=== PATIENT | male | born 1955 | race American Indian/Alaskan Native ===

== ENCOUNTER 2016-07-20 13:39 | Emergency (ER) | payer MEDICARE, OTHER ==
[2016-07-20 14:31] VITALS: BP 157/84; PULSE 95; RESP 20; TEMP 98; O2SAT 98
--- NOTE | 2016-07-20 15:17 | C.PDOC ---
History Of Present Illness 61 y/o male PMHx cerebral palsy, osteoarthritis, chronic B/L legs pain, psoriasis, presents to ED for evaluation of bilateral knee pain L>R. Pain gradually developed over past 4 days. Pt describes pain as aching, throbbing at time, localized , worse at night time. Pt admits similar symptoms in the past, states "when the weather goes bad I fell my knees and they fell heavy, and I can 't sleep at night due to the pain." Pt reports taking hydrocodone at home for pain " double dose and it helps for pain". Denies fever, chills, known trauma or injury, denies new sensory or vascular deficits to B/L legs, denies B/L calf pain, denies chest pain, SOB. present to ED, appears comfortable, not in any apparent distress. Time Seen by Provider: 07/20/16 14:48 Chief Complaint (Nursing): Lower Extremity Problem/Injury History Per: Patient History/Exam Limitations: no limitations Onset/Duration Of Symptoms: Days, Gradual Current Symptoms Are (Timing): Worse Severity: Moderate Recent travel outside of the [place] States: No Past Medical History Reviewed: Historical Data, Nursing Documentation, Vital Signs Vital Signs: Last Vital Signs Temp 98 F 07/20/16 14:28 Pulse 95 H 07/20/16 14:28 Resp 20 07/20/16 14:28 BP 157/84 H 07/20/16 14:28 Pulse Ox 98 07/20/16 15:23 Family History: States: Unknown Family Hx - Social History Hx Alcohol Use: Yes Hx Substance Use: No - Immunization History Hx Tetanus Toxoid Vaccination: No Hx Influenza Vaccination: No Hx Pneumococcal Vaccination: No Review Of Systems Except As Marked, All Systems Reviewed And Found Negative. Constitutional: Negative for: Fever, Chills Cardiovascular: Negative for: Chest Pain Respiratory: Negative for: Shortness of Breath Musculoskeletal: Positive for: Other (bilateral knee pain) Neurological: Negative for: Weakness, Numbness Physical Exam - Physical Exam Appears: Well, Non-toxic, No Acute Distress Skin: Warm, Dry, Rash (scaly dry rash over anterior aspect right knee extending down right pascual) Extremity: Tenderness (mild tenderness over superior aspect left knee), No Pedal Edema, No Calf Tenderness, Capillary Refill (<2 seconds), No Swelling, Other (Bilateral lower leg muscle wasting. No erythema, no edema, no cellulitis. ) Neurological/Psych: Oriented x3, Normal Speech, Normal Motor, Normal Sensation, Normal Reflexes ED Course And Treatment O2 Sat by Pulse Oximetry: 98 (room air) Pulse Ox Interpretation: Normal Progress Note: Pt refused Prednisone PO saying "I never takes pills in hospital , I get reaction to it". After pt was asked to describe reaction, sts " It gets stuck in my throat". Pt sts, its fine at home and usually gets it out if needed. Pt was offered injection and agrreed. Pt request medication prescription though. Pt was offered imaging of knees-refused. On re-eval, pt is afebrile, hemodynamicaly stable. NOn-toxic. B/L knees: exam c/w arthralgia r/o arthritis. FAROM, no deformity, no neurovascular deficist, no B/L calf tenderness, no cellulitis. Pt advised and ref. to F/u with PMD and Orthoin 2-3 days for re-eavl. return to ED if any worsening or new changes. B/L knees: Disposition Counseled Patient/Family Regarding: Diagnosis, Need For Followup, Rx Given - Disposition Referrals: Meghna Ibarra MD [Staff Provider] - Disposition: HOME/ ROUTINE Disposition Time: 15:20 Condition: STABLE Additional Instructions: Take medication as prescribed Take Hydrocodone pain medication as need for pain Follow up with PMD in 1-2 days for re-evaluation. Return if any worsening or new changes. 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 - Scribe Statement The provider has reviewed the documentation as recorded by the Eli Martinez All medical record entries made by the Eli were at my direction and personally dictated by me. I have reviewed the chart and agree that the record accurately reflects my personal performance of the history, physical exam, medical decision making, and the department course for this patient. I have also personally directed, reviewed, and agree with the discharge instructions and disposition.
[2016-07-20] MEDS ORDERED: MethylPREDNISolone 40 mg Vial IM STA (15:36)
[2016-07-20] MEDS ORDERED: MethylPREDNISolone 40 mg Vial ONE (15:45)
== END 2016-07-20 16:00 | disposition home or self-care (01) ==
LOC: C.ER 13:39
DX: M25.562 Pain in left knee (principal); M25.561 Pain in right knee; G80.9 Cerebral palsy, unspecified
CPT/HCPCS: 96372; 99283; J2920

== ENCOUNTER 2016-11-17 11:29 | Emergency (ER) | payer MEDICARE, OTHER ==
[2016-11-17 11:37] VITALS: RESP 16
--- NOTE | 2016-11-17 13:27 | C.PDOC ---
History Of Present Illness Patient is a 61 year old male, who presents to the emergency department complaining of "fever in his teeth" after having his teeth pulled last month. Patient reports he was given amoxicillin but hasn't taken it because "I drink alcohol every day" and does not take medications when he drinks. He also hasn't taken his blood pressure medicine for the same reason. He denies nausea or vomit. No further medical complaints. PMD: Meghna Ibarra Time Seen by Provider: 11/17/16 12:56 Chief Complaint (Nursing): Fever History Per: Patient History/Exam Limitations: no limitations Onset/Duration Of Symptoms: Days (x1 months ) Current Symptoms Are (Timing): Still Present Past Medical History Reviewed: Historical Data, Nursing Documentation, Vital Signs Vital Signs: Last Vital Signs Temp 98 F 11/17/16 13:29 Pulse 78 11/17/16 13:29 Resp 16 11/17/16 13:29 BP 148/89 11/17/16 13:29 Pulse Ox 99 11/17/16 21:09 - Medical History PMH: HTN Family History: States: Unknown Family Hx - Social History Hx Tobacco Use: Yes (Light smoker <10 cigarettes daily) Hx Alcohol Use: Yes Hx Substance Use: No - Immunization History Hx Tetanus Toxoid Vaccination: No Hx Influenza Vaccination: No Hx Pneumococcal Vaccination: No Review Of Systems Except As Marked, All Systems Reviewed And Found Negative. Constitutional: Positive for: Fever Gastrointestinal: Negative for: Nausea, Vomiting Physical Exam - Physical Exam Appears: Well, No Acute Distress Skin: Normal Color, Warm, Dry Head: Atraumatic, Normacephalic Eye(s): bilateral: Normal Inspection Teeth: Normal Dentition (back molars removed), No Tender To Palpation, No Other (swelling) Throat: Normal Neck: Normal, Normal ROM, Supple Lymphatic: Normal Exam Chest: Symmetrical, No Tenderness Cardiovascular: Rhythm Regular Respiratory: Normal Breath Sounds, No Rales, No Rhonchi, No Wheezing Extremity: Normal ROM, No Tenderness, No Swelling Neurological/Psych: Normal Speech, Normal Motor, Normal Sensation Gait: Steady ED Course And Treatment O2 Sat by Pulse Oximetry: 99 (RA) Pulse Ox Interpretation: Normal Disposition - Disposition Referrals: Meghna Ibarra MD [Staff Provider] - Disposition: HOME/ ROUTINE Disposition Time: 13:25 Condition: GOOD Additional Instructions: Follow up with the medical doctor within 1-2 days. Return if worsened. Prescriptions: Amoxicillin [Amoxil 500 mg Cap] 500 mg PO TID #20 cap Instructions: Gingivitis (ED) Forms: [facility] (Armenian) - Clinical Impression Clinical Impression: Gingivitis - Scribe Statement The provider has reviewed the documentation as recorded by the Juanibestefanía Gregg All medical record entries made by the Juanibestefanía were at my direction and personally dictated by me. I have reviewed the chart and agree that the record accurately reflects my personal performance of the history, physical exam, medical decision making, and the department course for this patient. I have also personally directed, reviewed, and agree with the discharge instructions and disposition.
[2016-11-17 13:30] VITALS: BP 148/89; PULSE 78; TEMP 98
[2016-11-17 21:04] VITALS: O2SAT 99
== END 2016-11-17 13:29 | disposition home or self-care (01) ==
LOC: C.ER 11:29
DX: K05.10 Chronic gingivitis, plaque induced (principal)

== ENCOUNTER 2016-11-22 15:52 | Observation (INO) | payer MEDICARE, OTHER ==
[2016-11-22] MEDS ORDERED: Aspirin 325 mg EC Tablets PO STA (16:35)
[2016-11-22] MEDS ORDERED: Aspirin 325 mg EC Tablets PO ONE (16:42)
[2016-11-22 16:47] LABS: BASO # 0.1 K/uL (0.0-0.2); BASO % 1.2 % (0.0-2.0); EOS # 0.1 K/uL (0.0-0.7); EOS % 1.1 % (0.0-4.0); HEMATOCRIT 48.4 % (35.0-51.0); LYMPH # 1.4 K/uL (1.0-4.3); LYMPH % 22.1 % (20.0-40.0); MEAN CELL VOLUME 81.9 fL (80.0-94.0); MEAN CORPUSCULAR HEMOGLOBIN 26.7 pg (27.0-31.0); MEAN CORPUSCULAR HGB CONC 32.5 g/dL (33.0-37.0); MEAN PLATELET VOLUME 8.4 fL (7.2-11.7); MONO # 0.6 K/uL (0.0-0.8); MONO % 9.5 % (0.0-10.0); RED CELL DISTRIBUTION WIDTH 16.3 % (11.5-14.5); WHITE BLOOD COUNT 6.3 K/uL (4.8-10.8)
--- NOTE | 2016-11-22 16:47 | C.PDOC ---
History Of Present Illness 61 y/o male with PMHx of HTN and Cerebral palsy presents to ED with complaints of mid sternal chest tightness since 2pm today. Patient states he feels chest is heavy and rates pain 8/10. Patient was seen at ED 1 week ago for Hypertensive episode and by his dentist for gingivitis and was given antibiotics he is compliant with. Patient reports he feels lightheaded and denies nausea, fever, sob, cough or any other complaints at this time. He has never had a similar episode and denies any known cardiac history. Time Seen by Provider: 11/22/16 16:13 Chief Complaint (Nursing): Chest Pain History Per: Patient History/Exam Limitations: no limitations Onset/Duration Of Symptoms: Hrs Current Symptoms Are (Timing): Still Present Quality: Tightness Associated Symptoms: denies: Nausea, Diaphoresis Past Medical History Reviewed: Historical Data, Nursing Documentation, Vital Signs Vital Signs: Last Vital Signs Temp 98 F 11/22/16 16:01 Pulse 91 H 11/22/16 16:15 Resp 17 11/22/16 16:15 BP 135/90 11/22/16 16:15 Pulse Ox 98 11/22/16 17:02 - Medical History PMH: HTN Surgical History: No Surg Hx Family History: States: No Known Family Hx - Social History Hx Tobacco Use: Yes (Light smoker <10 cigarettes daily) Hx Alcohol Use: Yes Hx Substance Use: No - Immunization History Hx Tetanus Toxoid Vaccination: No Hx Influenza Vaccination: No Hx Pneumococcal Vaccination: No Review Of Systems Except As Marked, All Systems Reviewed And Found Negative. Constitutional: Negative for: Fever, Chills Cardiovascular: Positive for: Chest Pain Respiratory: Negative for: Shortness of Breath Gastrointestinal: Negative for: Nausea, Vomiting, Diarrhea Skin: Negative for: Rash Neurological: Negative for: Weakness, Numbness Physical Exam - Physical Exam Appears: Non-toxic, No Acute Distress Skin: Warm, Dry, No Diaphoretic, No Rash Head: Atraumatic, Normacephalic Eye(s): bilateral: PERRL, left: Other (Left eye deviated laterally) Oral Mucosa: Moist Gingiva: Normal Appearing, No Erythema Throat: Normal, No Erythema Neck: Normal ROM, Supple Chest: Symmetrical Cardiovascular: Rhythm Regular Respiratory: Normal Breath Sounds, No Rales, No Rhonchi, No Wheezing Gastrointestinal/Abdominal: Soft, No Tenderness, No Guarding, No Rebound Back: No CVA Tenderness Neurological/Psych: Oriented x3, Normal Motor, Normal Sensation ED Course And Treatment - Laboratory Results Result Diagrams: 11/22/16 16:41 11/22/16 16:41 Lab Interpretation: No Acute Changes ECG: Interpreted By Me ECG Rhythm: Sinus Tachycardia (with left axis and anterior infarct ?age) O2 Sat by Pulse Oximetry: 98 (RA) Pulse Ox Interpretation: Normal - Radiology CXR: Interpreted by Me CXR Interpretation: Yes: No Acute Disease Reevaluation Time: 17:38 Reassessment Condition: Improved (Patient is pain free after ASA and NTG sl) - Physician Consult Information Time Consulting Physician Contacted: 17:38 Physician Contacted: Meghna Ibarra Outcome Of Conversation: Patient to be kept on cardiac observation for an ischemia work-up. Disposition - Disposition Disposition: HOSPITALIZED Disposition Time: 17:38 Condition: IMPROVED - POA Present On Arrival: None - Clinical Impression Clinical Impression: Chest pain - Scribe Statement The provider has reviewed the documentation as recorded by the Juanibestefanía Eric All medical record entries made by the Eli were at my direction and personally dictated by me. I have reviewed the chart and agree that the record accurately reflects my personal performance of the history, physical exam, medical decision making, and the department course for this patient. I have also personally directed, reviewed, and agree with the discharge instructions and disposition.
[2016-11-22 16:56] LABS: CHLORIDE 95 mmol/L (98-107); SODIUM 133 mmol/L (132-148)
[2016-11-22 16:58] LABS: GFR AFRICAN-AMERICAN > 60
[2016-11-22 16:59] LABS: ALB/GLOB RATIO 0.9 (1.0-2.1); ALKALINE PHOSPHATASE 100 U/L (38-126); ALT/SGPT 25 U/L (21-72); AST/SGOT 20 U/L (17-59); BILIRUBIN,TOTAL 0.5 mg/dL (0.2-1.3); BLOOD UREA NITROGEN 5 mg/dL (9-20); CARBON DIOXIDE 24 mmol/L (22-30); GLUCOSE,RANDOM 93 mg/dL (75-110); TOTAL PROTEIN 9.1 g/dL (6.3-8.3)
[2016-11-22 17:00] LABS: CALCIUM 9.8 mg/dl (8.6-10.4)
--- NOTE | 2016-11-22 17:43 | RAD ---
PROCEDURE: CHEST RADIOGRAPH, 1 VIEW HISTORY: chest pain COMPARISON: No prior study available for comparison FINDINGS: LUNGS: Clear. PLEURA: No pneumothorax or pleural fluid seen. CARDIOVASCULAR: Heart appears enlarged. OSSEOUS STRUCTURES: No significant abnormalities. VISUALIZED UPPER ABDOMEN: Normal. OTHER FINDINGS: None. IMPRESSION: No acute infiltrates.
[2016-11-22 17:57] LABS: RBC URINE < 1 /hpf (0-3); URINE BILIRUBIN NEGATIVE (NEGATIVE); URINE BLOOD NEGATIVE (NEGATIVE); URINE COLOR Colorless (YELLOW); URINE GLUCOSE (UA) NORMAL (Normal); URINE KETONE NEGATIVE (NEGATIVE); URINE LEUKOCYTE ESTERASE NEG Leu/uL (Negative); URINE PROTEIN NEGATIVE (NEGATIVE); URINE UROBILINOGEN NORMAL mg/dL (0.2-1.0)
[2016-11-23 00:39] VITALS: RESP 20
--- NOTE | 2016-11-23 03:27 | HP ---
HISTORY OF PRESENT ILLNESS: This is a 61-year-old black male, came to the emergency room with history of severe tightness in the chest since 2:00 p.m. today. The patient states he feels chest is very heavy and rates pain 8/10. The patient was seen in the emergency department 1 week ago for hypertensive episode and by his dentist for gingivitis and was given antibiotics, he is compliant with. The patient reports he feels lightheaded and denies nausea, fever, shortness of breath, cough or any other complaints. He has never had a similar episode and denies any known cardiac history. REVIEW OF SYSTEMS: CARDIOVASCULAR SYSTEM: As mentioned above. RESPIRATORY SYSTEM: Negative for shortness of breath. GASTROINTESTINAL SYSTEM: Negative for nausea, vomiting and abdominal pain. CENTRAL NERVOUS SYSTEM: No focal neurological complaints offered. No edema of the legs. No urinary complaints. The patient has chronic backache. PSYCHIATRICALLY: The patient is stable. All other systems are negative. PAST MEDICAL HISTORY: Hypertension, asthma, cerebral palsy. MEDICATIONS: The patient is on hydrocodone and losartan. FAMILY HISTORY: No known inherited disease. SOCIAL HISTORY: The patient smokes and also has alcohol. No IVDA. ALLERGIES: NO KNOWN ALLERGY. PHYSICAL EXAMINATION: GENERAL: This is a 61-year-old black male, alert, oriented, comfortable. VITAL SIGNS: Temperature 98 degree, pulse 91, respirations 17, blood pressure 135/90 mmHg, pulse ox is 98% on room air. HEENT: Normal. NECK: JVP is flat. Carotids, no bruits. LUNGS: No rales. No wheezing. HEART: S1 and S2 normal. No gallop. No murmur. ABDOMEN: Soft, nontender. No organomegaly. CENTRAL NERVOUS SYSTEM: No focal neurological deficits. EXTREMITIES: No edema of the legs. LABORATORY DATA: On admission, CBC is within normal limit. BMP is also normal. EKG; no acute ST-T changes. Tachycardia present. Pulse ox is 98% on room air. Chest x-ray; no acute disease. IMPRESSION: Acute coronary syndrome, hypertension, history of asthma and cerebral palsy. PLAN: The patient will be admitted to the floor. We will get cardiac workup done. We will observe. Vinodkumar Ibarra, MD
[2016-11-23 08:42] VITALS: BP 158/97; PULSE 98; TEMP 98.6; O2SAT 96
[2016-11-23] MEDS ORDERED: Enoxaparin 30 mg Syringe SC SCH (10:00)
--- NOTE | 2016-11-23 12:27 | CP.PCM.PN ---
Subjective - Date & Time of Evaluation Date of Evaluation: 11/23/16 Time of Evaluation: 12:25 - Subjective Subjective: PT FEELS BETTER. NO CHEST PAIN. NO SOB. TROPONIN NEG. Objective - Vital Signs/Intake and Output Vital Signs (last 24 hours): Temp Pulse Resp BP Pulse Ox 98.6 F 98 H 20 158/97 H 96 11/23/16 08:40 11/23/16 08:40 11/23/16 08:40 11/23/16 08:40 11/23/16 08:40 Intake and Output: 11/23/16 11/23/16 06:59 18:59 Output Total 1050 Balance -1050 - Medications Medications: Current Medications Enoxaparin Sodium (Lovenox) 30 mg SC 1000,2200 [facility] Last Admin: 11/23/16 09:37 Dose: Not Given Hydrochlorothiazide (Microzide) 12.5 mg PO DAILY [facility] Last Admin: 11/23/16 09:36 Dose: 12.5 mg Losartan Potassium (Cozaar) 100 mg PO DAILY [facility] Last Admin: 11/23/16 09:36 Dose: 100 mg Pneumococcal Polyvalent Vaccine (Pneumovax 23 Vaccine) 0.5 ml IM .ONCE ONE Stop: 11/24/16 10:01 - Labs Labs: 11/22/16 16:41 11/22/16 16:41 - Constitutional Appears: No Acute Distress, Chronically Ill - Eye Exam Eye Exam: Normal appearance, PERRL - ENT Exam ENT Exam: Mucous Membranes Moist - Respiratory Exam Respiratory Exam: Clear to Ausculation Bilateral, NORMAL BREATHING PATTERN - Cardiovascular Exam Cardiovascular Exam: REGULAR RHYTHM, +S1, +S2 - GI/Abdominal Exam GI & Abdominal Exam: Soft, Normal Bowel Sounds - Extremities Exam Extremities Exam: Full ROM, Normal Capillary Refill, Normal Inspection. absent : Joint Swelling, Pedal Edema - Back Exam Back Exam: NORMAL INSPECTION - Neurological Exam Neurological Exam: Alert, Awake, CN II-XII Intact, Normal Gait, Oriented x3 Assessment and Plan - Assessment and Plan (Free Text) Assessment: CHEST PAIN. STABLE. Plan: DISCHARGE HOME.
--- NOTE | 2016-11-23 13:02 | CARD ---
APPROVED REPORT EXAM: Two-dimensional and M-mode echocardiogram with Doppler and color Doppler. Other Information Quality : GoodRhythm : NSR INDICATION Chest Pain RISK FACTORS Hypertension M-Mode DIMENSIONS RVDd2.15 (2.1-3.2cm)Left Atrium (MM)2.85 (2.5-4.0cm) IVSd1.05 (0.7-1.1cm)Aortic Root3.75 (2.2-3.7cm) LVDd4.96 (4.0-5.6cm)Aortic Cusp Exc.2.30 (1.5-2.0cm) PWd0.98 (0.7-1.1cm)FS (%) 32 % LVDs3.36 (2.0-3.8cm)LVEF (%)60 (>50%) Mitral Valve MV E Ijtvywwg74.4cm/sMV A Dpfgaqpj61.1cm/sE/A ratio0.7 TDI E/Lateral E'0.0E/Medial E'0.0 LEFT VENTRICLE The left ventricle is normal size. There is normal left ventricular wall thickness. The left ventricular function is normal. The left ventricular ejection fraction is within the normal range. No regional wall motion abnormalities noted. Transmitral Doppler flow pattern is Grade I-abnormal relaxation pattern. No left ventricle thrombus noted on this study. There is no ventricular septal defect visualized. There is no left ventricular aneurysm. There is no mass noted in the left ventricle. RIGHT VENTRICLE The right ventricle is normal size. There is normal right ventricular wall thickness. The right ventricular systolic function is normal. ATRIA The left atrium size is normal. The right atrium size is normal. The interatrial septum is intact with no evidence for an atrial septal defect. AORTIC VALVE The aortic valve is normal in structure and function. No aortic regurgitation is present. There is no aortic valvular stenosis. There is no aortic valvular vegetation. MITRAL VALVE The mitral valve is normal in structure and function. There is no evidence of mitral valve prolapse. There is no mitral valve stenosis. There is no mitral valve regurgitation noted. TRICUSPID VALVE The tricuspid valve is normal in structure and function. There is no tricuspid valve regurgitation noted. There is no tricuspid valve prolapse or vegetation. There is no tricuspid valve stenosis. PULMONIC VALVE The pulmonary valve is normal in structure and function. There is no pulmonic valvular regurgitation. There is no pulmonic valvular stenosis. GREAT VESSELS The aortic root is normal in size. The ascending aorta is normal in size. The pulmonary artery is normal. The IVC is normal in size and collapses >50% with inspiration. PERICARDIAL EFFUSION The pericardium appears normal. There is no pleural effusion. <Conclusion> The left ventricular function is normal. The left ventricular ejection fraction is within the normal range. Transmitral Doppler flow pattern is Grade I-abnormal relaxation pattern.
--- NOTE | 2016-11-23 13:07 | CARD ---
APPROVED REPORT EKG Measurement Heart [id number] <Conclusion> Sinus tachycardia Left axis deviation LAFB Anterior infarct, age undetermined Abnormal ECG
[2016-11-24] MEDS ORDERED: Pneumococcal 23-Valent Vaccine IM ONE (10:00)
== END 2016-11-23 13:55 | disposition home or self-care (01) ==
LOC: C.ER 15:52 → C.9E 17:39 → C.6T 20:25
PROVIDERS: ADMIT Internal Medicine; ATTEND Internal Medicine
DX: R07.89 Other chest pain (principal); I10 Essential (primary) hypertension; G80.9 Cerebral palsy, unspecified; J45.909 Unspecified asthma, uncomplicated; F17.210 Nicotine dependence, cigarettes, uncomplicated
CPT/HCPCS: 36415; 71010; 80053; 81001; 84484; 85025; 93005; 93306; 99285; G0378

== ENCOUNTER 2017-01-18 10:25 | Emergency (ER) | payer MEDICARE, OTHER ==
[2017-01-18 10:42] VITALS: BP 170/90; PULSE 74; RESP 18; TEMP 97.7; O2SAT 99
--- NOTE | 2017-01-18 11:13 | C.PDOC ---
History Of Present Illness PERSIST R HAND PAIN X 6 DAYS. PS HAND ACCID CRUSHED BETWEEN DOOR AND WHEELCHAIR. PERSIST PAIN TOP OF HAND, WORSE W MOVEMENT. LIMITED RELIEF W HYDROCODONE (USES FOR OCCASIONAL CHRONIC LEG PAIN). NO OTHER PAIN MEDS TRIED. USING TOPICAL BENGAY TO AREA. EXAM MILD DIST NONTOXIC EXT R HAND +SWELLING TOP R HAND W GEN TEND. LIMITED ROM FINGERS DUE TO PAIN. NO TENDON DYFXN. SKIN INTACT +MILD ERYTHEMA DORSAL HAND. NO INDURATION. CHEMICAL INDUCED ERYTHEMA ([place]AL [place]T) VS CELLULITIS? NEURO INTACT MDM CHEMICAL INDUCED ERYTHEMA ([place]AL [place]) VS CELLULITIS? PT OFFERED SPLINT BUT CONCERN WILL NOT ABLE TO USE WHEELCHAIR DUE TO SPLINT. NSAIDS, CONT CURRENT PAIN MEDS, ICE, HAND REFER Time Seen by Provider: 01/18/17 11:05 Chief Complaint (Nursing): Upper Extremity Problem/Injury History Per: Patient History/Exam Limitations: no limitations Onset/Duration Of Symptoms: Days (6 days ago) Past Medical History Reviewed: Historical Data, Nursing Documentation, Vital Signs Vital Signs: Last Vital Signs Temp 97.7 F 01/18/17 10:39 Pulse 74 01/18/17 10:39 Resp 18 01/18/17 10:39 BP 170/90 H 01/18/17 10:39 Pulse Ox 99 01/19/17 10:49 - Medical History PMH: HTN Family History: States: No Known Family Hx - Social History Hx Tobacco Use: Yes (Light smoker <10 cigarettes daily) Hx Alcohol Use: Yes Hx Substance Use: No - Immunization History Hx Tetanus Toxoid Vaccination: No Hx Influenza Vaccination: No Hx Pneumococcal Vaccination: No Review Of Systems Except As Marked, All Systems Reviewed And Found Negative. Musculoskeletal: Positive for: Hand Pain (Right hand). Negative for: Neck Pain , Shoulder Pain, Arm Pain Neurological: Negative for: Weakness, Numbness Physical Exam - Physical Exam Appears: Non-toxic, In Acute Distress (Mild) Skin: Warm, Dry, No Rash Head: Atraumatic, Normacephalic Oral Mucosa: Moist Neck: Normal, Normal ROM, Supple Extremity: Tenderness (General tenderness to the top of right hand), Capillary Refill (<2 secs), Swelling (Swelling to the top of the right hand), Other ( Right Hand - Limited ROM of fingers due to pain. No tendon dysfunction. Mild erythema to the dorsal hand. No induration. Chemical induced erythema.) Neurological/Psych: Oriented x3, Normal Speech, Normal Motor, Normal Sensation ED Course And Treatment O2 Sat by Pulse Oximetry: 99 (RA) Pulse Ox Interpretation: Normal - Other Rad X-Ray - Right Hand X-Ray: Interpreted by Me, Viewed By Me Interpretation: NEG. X-Ray - Right Wrist X-Ray: Interpreted by Me, Viewed By Me Interpretation: NEG. Medical Decision Making Medical Decision Making: PLAN: * X-Ray - Right Hand, Right Wrist * Liderom TD * Toradol IM NOTE: CHEMICAL INDUCED ERYTHEMA ([place]T) VS CELLULITIS? PT OFFERED SPLINT BUT CONCERN WILL NOT ABLE TO USE WHEELCHAIR DUE TO SPLINT. NSAIDS, CONT CURRENT PAIN MEDS, ICE, HAND REFER Disposition Counseled Patient/Family Regarding: Diagnosis, Need For Followup, Rx Given - Disposition Referrals: Louie Hicks MD [Staff Provider] - Disposition: HOME/ ROUTINE Disposition Time: 11:20 Condition: IMPROVED Additional Instructions: APPLY PATCH TO AFFECTED AREA. MAX 3 PATCHES AT A TIME. REMOVE PATCH 12 HOURS AFTER INITIAL APPLICATION. ALTERNATE 12 HOURS ON, 12 HOURS OFF. Prescriptions: Cephalexin [cephalexin] 500 mg PO BID #14 cap Ibuprofen [Motrin] 600 mg PO Q6 #30 tab Lidocaine 5% [Lidoderm] 1 ea TD PRN PRN #10 patch PRN Reason: Pain, Moderate (4-7) Instructions: Hand Sprain (ED) Forms: [facility] (Romanian) - Clinical Impression Clinical Impression: Hand sprain - Scribe Statement The provider has reviewed the documentation as recorded by the Juanibestefanía Nicole Provider Attestation: All medical record entries made by the Juanibestefanía were at my direction and personally dictated by me. I have reviewed the chart and agree that the record accurately reflects my personal performance of the history, physical exam, medical decision making, and the department course for this patient. I have also personally directed, reviewed, and agree with the discharge instructions and disposition.
--- NOTE | 2017-01-18 14:02 | RAD ---
PROCEDURE: Right Wrist Radiographs. HISTORY: TRAUMA COMPARISON: None. FINDINGS: BONES: Normal. No fracture. JOINTS: Normal. No dislocation. SOFT TISSUES: Normal. OTHER FINDINGS: None. IMPRESSION: Normal right wrist radiographs.
--- NOTE | 2017-01-18 14:03 | RAD ---
PROCEDURE: Right Hand Radiographs. HISTORY: TRAUMA COMPARISON: None. FINDINGS: BONES: Normal. No fracture. JOINTS: Minimal 1st carpal metacarpal and mild 1st 2nd and 3rd metacarpal phalangeal joint arthrosis osteoarthritic No erosions SOFT TISSUES: Normal. OTHER FINDINGS: None. IMPRESSION: No fracture or dislocation Mild arthrosis.
[2017-01-19] MEDS ORDERED: Lidocaine 5% Patch TD SCH (10:00)
== END 2017-01-18 11:30 | disposition home or self-care (01) ==
LOC: C.ER 10:25
DX: S63.91XA Sprain of unspecified part of right wrist and hand, initial encounter (principal); W23.0XXA Caught, crushed, jammed, or pinched between moving objects, initial encounter

== ENCOUNTER 2017-09-25 11:23 | Emergency (ER) | payer MEDICARE, OTHER ==
--- NOTE | 2017-09-25 12:43 | C.PDOC ---
History Of Present Illness 62 y/o male with history of HTN and Cerebral Palsy presents to ED with c/o cramping back pain for 2 days. Patient states he tried Icy Hot ointment with no relief and denies injury to area, numbness, tingling, bowel/bladder incontinence , chest pain, sob, abdominal pain or any other complaints at this time. Time Seen by Provider: 09/25/17 11:38 Chief Complaint (Nursing): Back Pain History Per: Patient History/Exam Limitations: no limitations Onset/Duration Of Symptoms: Days Current Symptoms Are (Timing): Still Present Quality Of Discomfort: Cramping Past Medical History Reviewed: Historical Data, Nursing Documentation, Vital Signs Vital Signs: Last Vital Signs Temp 98.2 F 09/25/17 14:47 Pulse 62 09/25/17 14:47 Resp 16 09/25/17 14:47 BP 176/90 H 09/25/17 14:47 Pulse Ox 99 09/25/17 14:47 - Medical History PMH: HTN Surgical History: No Surg Hx Family History: States: No Known Family Hx - Social History Hx Tobacco Use: Yes (Light smoker <10 cigarettes daily) Hx Alcohol Use: Yes Hx Substance Use: No - Immunization History Hx Tetanus Toxoid Vaccination: No Hx Influenza Vaccination: No Hx Pneumococcal Vaccination: No Review Of Systems Constitutional: Negative for: Fever, Chills Cardiovascular: Negative for: Chest Pain Respiratory: Negative for: Shortness of Breath Gastrointestinal: Negative for: Nausea, Vomiting, Abdominal Pain Genitourinary: Negative for: Incontinence Musculoskeletal: Positive for: Back Pain Skin: Negative for: Rash Neurological: Negative for: Weakness, Numbness Physical Exam - Physical Exam Appears: Non-toxic, No Acute Distress Skin: Warm, Dry, No Rash Head: Atraumatic, Normacephalic Eye(s): bilateral: Normal Inspection Oral Mucosa: Moist Neck: Supple Cardiovascular: Rhythm Regular Respiratory: Normal Breath Sounds, No Rales, No Rhonchi, No Wheezing Gastrointestinal/Abdominal: Soft, No Tenderness, No Guarding, No Rebound Back: No CVA Tenderness, Muscle Spasm, Other (Left perithoracic tenderness) Extremity: Normal ROM, Capillary Refill (<2 seconds) Neurological/Psych: Oriented x3, Normal Speech, Normal Cognition, Normal Motor, Normal Sensation ED Course And Treatment O2 Sat by Pulse Oximetry: 98 (RA) Pulse Ox Interpretation: Normal Medical Decision Making Medical Decision Making: Patient has no neuro deficits and is at baseline. Disposition - Disposition Referrals: Malachi Estevez MD [Non-Staff] - Disposition: HOME/ ROUTINE Disposition Time: 14:12 Condition: GOOD Additional Instructions: Follow up with the [facility] doctor[facility]clinic within 1-2 days. Return if worsened. 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 - Scribe Statement The provider has reviewed the documentation as recorded by the Eli Eric All medical record entries made by the Juanibestefanía were at my direction and personally dictated by me. I have reviewed the chart and agree that the record accurately reflects my personal performance of the history, physical exam, medical decision making, and the department course for this patient. I have also personally directed, reviewed, and agree with the discharge instructions and disposition.
[2017-09-25 14:48] VITALS: BP 176/90; PULSE 62; RESP 16; TEMP 98.2
[2017-09-28 21:43] VITALS: O2SAT 98
== END 2017-09-25 14:48 | disposition home or self-care (01) ==
LOC: C.ER 11:23
DX: M54.5 Low back pain (principal); I10 Essential (primary) hypertension; G80.9 Cerebral palsy, unspecified; F17.210 Nicotine dependence, cigarettes, uncomplicated
CPT/HCPCS: 96372; 99284; J1885

== ENCOUNTER 2017-12-26 12:26 | Emergency (ER) | payer MEDICARE, OTHER ==
[2017-12-26 14:32] VITALS: BP 177/97; PULSE 92; RESP 20; TEMP 98.4; O2SAT 96
--- NOTE | 2017-12-26 14:33 | RAD ---
HISTORY: UPPER BACK PAIN AFTER FALL COMPARISON: Chest x-ray performed 11/22/16 TECHNIQUE: Chest PA and lateral FINDINGS: Nondiagnostic lateral view provided. Examination also limited by habitus. Lateral most right chest wall excluded from view. LUNGS: Bibasilar atelectasis or infiltrates. Please note that chest x-ray has limited sensitivity for the detection of pulmonary masses. PLEURA: No significant pleural effusion identified. No definite pneumothorax . CARDIOVASCULAR: Cardiomegaly. Ectatic aorta. Faint atherosclerotic calcification present. OSSEOUS STRUCTURES: No acute osseous abnormality identified. VISUALIZED UPPER ABDOMEN: Unremarkable. OTHER FINDINGS: None. IMPRESSION: Nondiagnostic lateral view. Cardiomegaly. Bibasilar atelectasis or infiltrates.
--- NOTE | 2017-12-26 14:50 | C.PDOC ---
History Of Present Illness 62-year-old male presents to the ED for evaluation of upper back pain, described as a muscle spasm, which begin after he slipped and fell off his couch around two days ago. Patient reports hitting his upper back during the fall. He denies shortness of breath, chest pain, neck pain, head injury or loss of consciousness. Time Seen by Provider: 12/26/17 13:29 Chief Complaint (Nursing): Back Pain History Per: Patient History/Exam Limitations: no limitations Onset/Duration Of Symptoms: Days (2) Current Symptoms Are (Timing): Still Present Quality Of Discomfort: "Pain" Previous Symptoms: Back Pain Associated Symptoms: denies: Incontinence, New Weakness, New Numbness Additional History Per: Patient Past Medical History Reviewed: Historical Data, Nursing Documentation, Vital Signs Vital Signs: Last Vital Signs Temp 98.4 F 12/26/17 14:31 Pulse 92 H 12/26/17 14:31 Resp 20 12/26/17 14:31 BP 177/97 H 12/26/17 14:31 Pulse Ox 96 12/26/17 14:31 - Medical History PMH: HTN Surgical History: No Surg Hx Family History: States: Unknown Family Hx - Social History Hx Tobacco Use: Yes (Light smoker <10 cigarettes daily) Hx Alcohol Use: Yes (denies) Hx Substance Use: No - Immunization History Hx Tetanus Toxoid Vaccination: No Hx Influenza Vaccination: No Hx Pneumococcal Vaccination: No Review Of Systems Cardiovascular: Negative for: Chest Pain Respiratory: Negative for: Shortness of Breath Musculoskeletal: Positive for: Back Pain (upper ). Negative for: Neck Pain Physical Exam - Physical Exam Appears: Non-toxic, No Acute Distress Skin: Normal Color, Warm, Dry Head: Atraumatic, Normacephalic Eye(s): bilateral: Normal Inspection Oral Mucosa: Moist Neck: Supple Chest: Symmetrical, No Deformity, No Tenderness Cardiovascular: Rhythm Regular, No Murmur Respiratory: Normal Breath Sounds, No Rales, No Rhonchi, No Wheezing Gastrointestinal/Abdominal: Soft, No Tenderness, No Guarding, No Rebound Back: No Vertebral Tenderness, Other (mild tenderness to palpation immediately below shoulder blades, at T2-T3 level ) Extremity: Normal ROM, Capillary Refill (less than 2 seconds ) Neurological/Psych: Oriented x3, Normal Speech, Normal Cognition, Normal Sensation Gait: Steady ED Course And Treatment O2 Sat by Pulse Oximetry: 96 (on RA ) Pulse Ox Interpretation: Normal - Other Rad CXR X-Ray: Viewed By Me, Read By Radiologist Interpretation: HISTORY: UPPER BACK PAIN AFTER FALL. COMPARISON: Chest x-ray performed 11/22/16. TECHNIQUE: Chest PA and lateral. FINDINGS: Nondiagnostic lateral view provided. Examination also limited by habitus. Lateral most right chest wall excluded from view. LUNGS: Bibasilar atelectasis or infiltrates. Please note that chest x-ray has limited sensitivity for the detection of pulmonary masses. PLEURA: No significant pleural effusion identified. No definite pneumothorax . CARDIOVASCULAR: Cardiomegaly. Ectatic aorta. Faint atherosclerotic calcification present. OSSEOUS STRUCTURES: No acute osseous abnormality identified. VISUALIZED UPPER ABDOMEN: Unremarkable. OTHER FINDINGS: None. IMPRESSION: Nondiagnostic lateral view. Cardiomegaly. Bibasilar atelectasis or infiltrates. Progress Note: CXR ordered and reviewed. Toradol IM given. Disposition Counseled Patient/Family Regarding: Studies Performed, Diagnosis, Need For Followup, Rx Given - Disposition Referrals: Meghna Ibarra MD [Staff Provider] - Disposition: HOME/ ROUTINE Disposition Time: 14:50 Condition: STABLE Additional Instructions: FOLLOW UP WITH YOUR DOCTOR IN 1-2 DAYS USE MEDICATIONS NEEDED RETURN TO ER IF SYMPTOMS WORSEN Prescriptions: Cyclobenzaprine [Flexeril] 10 mg PO BID PRN #15 tab PRN Reason: Muscle Spasm Naproxen 375 mg PO BID PRN #20 tablet PRN Reason: pain Instructions: Upper Back Pain (DC) Forms: [employer] (Faroese) Print Language: ANGUILLAN - Clinical Impression Clinical Impression: Upper back pain, Muscle spasm - Scribe Statement The provider has reviewed the documentation as recorded by the Scribe (Hawa Ibarra) Provider Attestation: All medical record entries made by the Scribe were at my direction and personally dictated by me. I have reviewed the chart and agree that the record accurately reflects my personal performance of the history, physical exam, medical decision making, and the department course for this patient. I have also personally directed, reviewed, and agree with the discharge instructions and disposition.
== END 2017-12-26 15:04 | disposition home or self-care (01) ==
LOC: C.ER 12:26
DX: M54.6 Pain in thoracic spine (principal); M62.838 Other muscle spasm; I10 Essential (primary) hypertension; Z72.0 Tobacco use
CPT/HCPCS: 71046; 96372; 99283; J1885